=== PATIENT | female | born 1980 | race American Indian/Alaskan Native ===

== ENCOUNTER 2018-05-26 20:37 | Emergency (ER) | payer SELFPAY | END 2018-05-26 20:42 | disposition left against medical advice (07) | LOC: ED 20:37 | DX: N89.8 Other specified noninflammatory disorders of vagina (principal); Z53.21 Procedure and treatment not carried out due to patient leaving prior to being seen by health care provider ==

== ENCOUNTER 2018-12-11 09:30 | Emergency (ER) | payer MEDICAID, OTHER ==
[2018-12-11 09:40] VITALS: BP 139/89
--- NOTE | 2018-12-11 10:16 | Emergency Department Report ---
ED ENT HPI - General Chief complaint: Earache Stated complaint: L EAR PAIN/SWOLLEN Time Seen by Provider: 12/11/18 10:03 Source: patient Mode of arrival: Ambulatory Limitations: No Limitations - History of Present Illness Initial comments: 38-year-old Marshallese Marshall[place] female presents to the emergency room complaining of left ear pain. Patient denies any fever chills or nausea or vomiting. Patient states that it feels full in pain when she touches it. Pain is worse when she lies on the left side. Patient denies any past medical history currently takes no medications on a daily basis and has no known drug allergies. MD complaint: ear pain Onset/Timin -: days(s) Location: L ear Severity: severe Severity scale (0 -10): 9 Quality: aching, sharp Consistency: constant Improves with: none - Related Data Previous Rx's Medication Instructions Recorded Last Taken Type HYDROcodone/ACETAMINOPHEN 15 ml PO Q6HR PRN #150 solution 04/21/18 Unknown Rx [Hydrocodon-Acetamin 7.5-325/15] Ibuprofen [Motrin 600 MG tab] 600 mg PO Q8H PRN #30 tablet 12/11/18 Unknown Rx Neomy/Polymyx B/Hc (Otic) Soln 4 drops TID #1 bottle 12/11/18 Unknown Rx [Cortisporin (Otic) Soln] Allergies Allergy/AdvReac Type Severity Reaction Status Date / Time No Known Allergies Allergy Unverified 03/14/18 21:38 ED Dental HPI - General Chief complaint: Earache Stated complaint: L EAR PAIN/SWOLLEN Time Seen by Provider: 12/11/18 10:03 Source: patient Mode of arrival: Ambulatory Limitations: No Limitations - Related Data Previous Rx's Medication Instructions Recorded Last Taken Type HYDROcodone/ACETAMINOPHEN 15 ml PO Q6HR PRN #150 solution 04/21/18 Unknown Rx [Hydrocodon-Acetamin 7.5-325/15] Ibuprofen [Motrin 600 MG tab] 600 mg PO Q8H PRN #30 tablet 12/11/18 Unknown Rx Neomy/Polymyx B/Hc (Otic) Soln 4 drops TID #1 bottle 12/11/18 Unknown Rx [Cortisporin (Otic) Soln] Allergies Allergy/AdvReac Type Severity Reaction Status Date / Time No Known Allergies Allergy Unverified 03/14/18 21:38 ED Review of Systems ROS: Stated complaint: L EAR PAIN/SWOLLEN Other details as noted in HPI Comment: All other systems reviewed and negative ED Past Medical Hx - Past Medical History Previous Medical History?: No Hx Hypertension: Yes - Surgical History Past Surgical History?: Yes Additional Surgical History: - Social History Smoking Status: Never Smoker Substance Use Type: None - Medications Home Medications: Home Medications Medication Instructions Recorded Confirmed Last Taken Type HYDROcodone/ACETAMINOPHEN 15 ml PO Q6HR PRN #150 solution 04/21/18 Unknown Rx [Hydrocodon-Acetamin 7.5-325/15] Ibuprofen [Motrin 600 MG tab] 600 mg PO Q8H PRN #30 tablet 12/11/18 Unknown Rx Neomy/Polymyx B/Hc (Otic) Soln 4 drops TID #1 bottle 12/11/18 Unknown Rx [Cortisporin (Otic) Soln] ED Physical Exam - General Limitations: No Limitations General appearance: alert, in no apparent distress - Head Head exam: Present: atraumatic, normocephalic - Eye Eye exam: Present: normal appearance, PERRL, EOMI - Expanded ENT Exam Expanded TM/Canal exam: Canal Tenderness: Left TM (tragus tenderness left auricle tenderness) Mouth exam: Present: normal external inspection - Neck Neck exam: Present: normal inspection, full ROM ED Course Vital Signs 12/11/18 09:33 Temperature 98.3 F Pulse Rate 73 Respiratory 18 Rate Blood Pressure 139/89 O2 Sat by Pulse 100 Oximetry ED Medical Decision Making - Medical Decision Making 38-year-old Marshallese Marshall[place] female presents to the emergency room complaining of left ear pain. Patient denies any fever chills or nausea or vomiting. P atient states that it feels full in pain when she touches it. Pain is worse when she lies on the left side. Patient denies any past medical history currently takes no medications on a daily basis and has no known drug allergies. Patient has a left otitis externa. Patient replaced normal Cortisporin and ibuprofen and to follow-up with her primary care provider for symptoms persist or gets worse. Critical care attestation.: If time is entered above; I have spent that time in minutes in the direct care of this critically ill patient, excluding procedure time. ED Disposition Clinical Impression: Otitis externa Disposition: DC-01 TO HOME OR SELFCARE Is pt being admited?: No Does the pt Need Aspirin: No Condition: Stable Instructions: Otitis Externa (ED) Additional Instructions: Please see his ear drops to left ear 4 infection of the left ear canal. Please take pain medication as needed. Increase her fluid intake but taking ibuprofen. Follow up with her primary care provider if symptoms persist or gets worse. Prescriptions: Neomy/Polymyx B/Hc (Otic) Soln [Cortisporin (Otic) Soln] 4 drops TID #1 bottle Ibuprofen [Motrin 600 MG tab] 600 mg PO Q8H PRN #30 tablet PRN Reason: Pain Referrals: [facility] [Outside] - 3-5 Days Forms: Work/School Release Form(ED)
== END 2018-12-11 10:34 | disposition home or self-care (01) ==
LOC: ED 09:30
DX: H60.92 Unspecified otitis externa, left ear (principal); I10 Essential (primary) hypertension; Z79.899 Other long term (current) drug therapy
CPT/HCPCS: 99282